=== PATIENT | female | born 1940 | race Caucasian/White ===

== ENCOUNTER 2017-09-25 13:30 | Outpatient (RCR) | payer MEDICARE, BC | END 2017-09-30 09:48 | disposition home or self-care (01) | LOC: WSST 13:30 | DX: I69.322 Dysarthria following cerebral infarction (principal); I69.320 Aphasia following cerebral infarction; R49.9 Unspecified voice and resonance disorder; I69.391 Dysphagia following cerebral infarction; I69.319 Unspecified symptoms and signs involving cognitive functions following cerebral infarction; I69.398 Other sequelae of cerebral infarction; R26.89 Other abnormalities of gait and mobility; I48.0 Paroxysmal atrial fibrillation; Z74.09 Other reduced mobility | CPT/HCPCS: G8978-GP; G8979-GP; G8980-GP; G9159-GN; G9160-GN; G9161-GN ==